=== PATIENT | male | born 1965 | race Caucasian/White ===

== ENCOUNTER 2021-04-26 10:18 | Emergency (ER) | payer OTHER ==
[~2021-04-26] VITALS: Ht 182.9 cm; Wt 104.3 kg
--- NOTE | ~2021-04-26 | EMS ---
[address] [address] EMS Patient Care Report Name: SANDRA DREW Room #: PRE M.R.#: [id number] Admission: Attend Phys: Discharge: Date of : 69 Report #: [id number] THIS REPORT FOR: //name// Report Transmitted: 04/26/2021 10:15 EMS Care Summary [facility] MED-ACT Incident [id number] @ 04/26/2021 09:45 Incident Location [facility] [place] [address] Patient SANDRA DREW Male, 56 Years 1965 Patient Address [facility] [place] [address] Patient History Bipolar II Disorder, Patient Allergies No known allergies, Patient Medications [place], Chief Complaint Chest pressure with lightheadedness Disposition Transported No Lights/[place] Dispatch Reason Chest Pain (Non-Traumatic) Transported To [facility] Narrative We arrived to find the pt seated on an air mattress in the living room of the home. LFD was on scene prior to our arrival and they were at care. The pt presented alert/oriented and in no visible distress. The pt spoke in complete sentences. He called after experiencing some lightheadedness and chest [address] [address] EMS Patient Care Report Name: SANDRA DREW [id number] Admission: Attend Phys: Discharge: Date of : 69 Report #: [id number] pressure. The pt stated that he woke up feeling fine and he went to walk up stairs. On the way up the stairs he suddenly felt lightheaded and had pressure in the L side of his chest that radiated down both arms. He walked back down the stair and sat down for a minute. The lightheadedness subsided, but he still felt the pressure in his chest and down his arms. So he called 911. The pt also reports having COVID about a month ago and he has had some slight shortness of breath occasionally since then. He is also fully vaccinated. The pt rated the pressure at a 4 out of 10. He said he has had similar episodes in the last month, but hasn't been seen by Dr for it. The pt denied any other complaints. Pt ambulated to the stretcher at the front door and was secured and moved to the unit. Treatment continued as documented and the pt rested without change in his condition. Pt care was transferred to [facility] staff in room 4 without incident. 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,BP: 138/86 M,PULSE: 90,RR: 16 R,SPO2: 96 Ox,ETCO2: ,BG: ,PAIN: 4,GCS: 15, 09:43,Call Received 09:43,Psap Call 09:45,Dispatched 09:45,En Route 09:52,On Scene 09:54,At Patient 09:55,12-Lead ECG,Response: UnchangedSucceeded, 09:55,BP: / M,PULSE: 91,RR: R,SPO2: Ox,ETCO2: ,BG: ,PAIN: ,GCS: , [address] [address] EMS Patient Care Report Name: SANDRA DREW Room #: PRE M.R.#: [id number] Admission: Attend Phys: Discharge: Date of : 69 Report #: [id number] 09:57,Aspirin - 324 Milligrams (mg) - Oral,Response: Unchanged 10:01,BP: 141/94 M,PULSE: 82,RR: R,SPO2: 97 Ox,ETCO2: ,BG: ,PAIN: ,GCS: , 10:03,Saline Lock 10cc 18 ga Site: Antecubital-Left,Response: UnchangedSucceeded, 10:03,BP: / M,PULSE: 82,RR: R,SPO2: 97 Ox,ETCO2: ,BG: ,PAIN: ,GCS: , 10:03,BP: / M,PULSE: 83,RR: R,SPO2: Ox,ETCO2: ,BG: ,PAIN: ,GCS: , 10:04,Depart Scene 10:05,Surgical Mask on Patient,Response: Unchanged 10:13,BP: / M,PULSE: 85,RR: R,SPO2: 96 Ox,ETCO2: ,BG: ,PAIN: ,GCS: , 10:14,At Destination 10:36,Call Closed Disclaimer v1.1 Copyright 2020 [employer] This EMS Care Summary contains data elements from the applicable legal record (which may be displayed differently). It is designed to provide pertinent information for the following purposes: continuity of care, clinical quality, and state data reporting. The complete legal record is available to ED staff and administrators of the receiving hospital in [employer]'s Patient Tracker. All data is provided "as is."
[~2021-04-26 10:18] MED LIST: BUPROPION OR; FLEXERIL PO; IBUPROFEN 200200 M1 OR; KEFLEX250 MG PO; LAMICTAL100 MG PO; LEXAPRO 10 MG T10 MG OR; LITHIUM CARBON300 M3 PO; NORCO 5-325 TA1 EACH PO; VYVANSE40 MG OR; XANAX 0.25 MG0.25 MG PO
[2021-04-26 10:38] LABS: ABSOLUTE NEUTROPHILS 4.4 thou/uL (1.4-8.2); BASOPHILS 0.9 % (0.0-2.0); EOSINOPHILS 2.9 % (0.0-3.0); HEMATOCRIT 48.6 % (42.0-52.0); HEMOGLOBIN 16.2 gm/dL (14.0-18.0); LYMPHOCYTES 26.5 % (24.0-44.0); MCH 29.4 pg (26.0-34.0); MCHC 33.4 g/dL (28.0-37.0); MCV 88.2 fL (80.0-100.0); MONOCYTES 11.1 % (1.0-8.0); PLATELET COUNT 263 thou/uL (150-400); POLYS 58.6 % (36.0-66.0); RBC 5.51 mil/uL (4.50-6.00); RDW 13.5 % (10.5-14.5); WBC 7.6 thou/uL (4.0-11.0)
[2021-04-26 10:49] LABS: POTASSIUM 3.9 mmol/L (3.5-5.1)
[2021-04-26 10:59] LABS: ALBUMIN 3.5 g/dL (3.4-5.0); TOTAL BILIRUBIN 1.7 mg/dL (0.2-1.0); TOTAL PROTEIN 7.4 g/dL (6.4-8.2)
--- NOTE | 2021-04-26 11:50 | EKG ---
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 : 1965 Requested By: Waqar Rodriguez Order Number: [id number] MD: Jeremiah Still Measurements Intervals [place] Rate: 75 P: 23 MD: 144 QRS: 31 QRSD: 104 T: 3 QT: 363 QTc: 406 Interpretive Statements Sinus rhythm Atrial premature complex Probable left atrial enlargement RSR' in V1 or V2, right VCD or RVH Compared to ECG 11/26/2013 20:49:46 Sinus tachycardia no longer present Electronically Signed On 04-26-2021 11:50:12 CDT by Jeremiah Still [email or web address] <ELECTRONICALLY SIGNED> By: Jeremiah Still MD, [facility] 04/26/21 1150 [id number] Jeremiah Still MD, FACC /EPI
[2021-04-26 13:09] VITALS: BP 104/63
--- NOTE | 2021-04-27 07:22 | EKG ---
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 04/27/21 0722 1224 1224 Jeremiah Still MD, [facility] /EPI
== END 2021-04-26 13:09 | disposition home or self-care (01) ==
LOC: ER 10:18
PROVIDERS: Student in an Organized Health Care Education/Training Program
DX: R07.89 Other chest pain (principal); F31.9 Bipolar disorder, unspecified; F12.90 Cannabis use, unspecified, uncomplicated; Z90.49 Acquired absence of other specified parts of digestive tract; Z98.890 Other specified postprocedural states; Z86.16 Personal history of COVID-19; Z79.899 Other long term (current) drug therapy; Z79.1 Long term (current) use of non-steroidal anti-inflammatories (NSAID)

== ENCOUNTER → 2021-04-30 | Outpatient (CLI) | payer OTHER | LOC: CAT 13:24 | PROVIDERS: ATTEND Internal Medicine Cardiovascular Disease | DX: Z13.6 Encounter for screening for cardiovascular disorders (principal); E78.00 Pure hypercholesterolemia, unspecified; I25.10 Atherosclerotic heart disease of native coronary artery without angina pectoris ==

== ENCOUNTER → 2021-06-11 | Outpatient (CLI) | payer OTHER | END | disposition home or self-care (01) | LOC: SJCVCIMAG 08:14 | PROVIDERS: ATTEND Internal Medicine Cardiovascular Disease | DX: R07.89 Other chest pain (principal); E78.5 Hyperlipidemia, unspecified ==